=== PATIENT | female | born 1975 | race African-American/Black ===

== ENCOUNTER 2019-05-23 19:40 | Emergency (ER) | payer OTHER ==
[2019-05-23 19:58] VITALS: BMI 34.7
[2019-05-23] MEDS ORDERED: LORazepam 2 MG TABLET PO ONE (21:09)
[2019-05-23] MEDS ORDERED: LORazepam 0.5 MG TABLET ONE (21:11)
[2019-05-23 22:03] VITALS: BP 130/87; PULSE 70; TEMP 98.7
== END 2019-05-23 22:17 | disposition home or self-care (01) ==
LOC: JER 19:40
DX: R07.9 Chest pain, unspecified (principal); Z20.828 Contact with and (suspected) exposure to other viral communicable diseases
CPT/HCPCS: 36415; 71045-TC-FY; 82550; 84484; 93005; 93010; 99284-25

== ENCOUNTER 2019-11-25 01:20 | Observation (INO) | payer OTHER ==
[2019-11-25 01:29] VITALS: BMI 34.7
--- NOTE | 2019-11-25 01:43 | PDOC ---
History of Present Illness - General Chief Complaint: Shortness of Breath Stated Complaint: DIFFICULTY BREATHING - History of Present Illness Initial Comments: 11/25/19 01:43 HPI: 44 y/o F with no pmh presenting with "panic attack" and chest pain. She woke up at midnight gasping for air and felt subsequent chest pressure that was genrealized and non radiating. She also felt SOB. Since arrival her symptoms have improved with no intervention. She reports it is similar to her previous panic attacks. Symptoms are not exertional. She also has 2-3pillow orthopnea but denies PND. She denies fever, chills, abd pain, n/v, dysuria PMHx: as noted above ROS: as noted SHx: 1/2 ppd tobacco use; no alcohol use; no rec drugs Allergies: NKDA ROS: GENERAL/CONSTITUTIONAL: No fever or chills. No weakness. HEAD, EYES, EARS, NOSE AND THROAT: No change in vision. No ear pain or discharge. No sore throat. CARDIOVASCULAR: +chest pain and shortness of breath RESPIRATORY: No cough, wheezing, or hemoptysis. GASTROINTESTINAL: No nausea, vomiting, diarrhea or constipation. GENITOURINARY: No dysuria, frequency, or change in urination. MUSCULOSKELETAL: No joint or muscle swelling or pain. No neck or back pain. SKIN: No rash NEUROLOGIC: No headache, vertigo, loss of consciousness, or change in strength/sensation. ENDOCRINE: No increased thirst. No abnormal weight change HEMATOLOGIC/LYMPHATIC: No anemia, easy bleeding, or history of blood clots. ALLERGIC/IMMUNOLOGIC: No hives or skin allergy. PE: GENERAL: Awake, alert, and fully oriented, no acute distress HEAD: No signs of trauma, normocephalic, atraumatic EYES: EOMI, sclera anicteric, conjunctiva clear ENT: Auricles normal inspection, hearing grossly normal, nares patent, oropharynx clear without exudates. Moist mucosa NECK: Normal ROM, no lymphadenopathy LUNGS: No increased work of breathing, symmetrical chest rise, clear to auscultation bilaterally, no wheezes, crackles or rhonchi HEART: Regular rate, regular rhythm, normal S1 and S2, no murmur, peripheral pulses 2+ and equal bilaterally. ABDOMEN: Soft, nondistended, nontender. No guarding, no rebound. No masses. No CVAT MUSCULOSKELETAL: FROM NEUROLOGICAL: Cranial nerves II through XII grossly intact. Normal speech, stable gait, no focal sensorimotor deficits SKIN: Warm, Dry, normal turgor, no rashes or lesions noted Past History - Medical History Allergies/Adverse Reactions: Allergies Allergy/AdvReac Type Severity Reaction Status Date / Time No Known Allergies Allergy Verified 11/25/19 01:29 - Reproductive History Is Patient Now?: No - Psycho-Social/Smoking History Smoking History: Current every day smoker Number of Cigarettes Smoked Daily: 12 Information on smoking cessation initiated: No - Substance Abuse Hx (Audit-C & DAST Scrn) How often the patient has a drink containing alcohol: Monthly or less Number of drinks the patient has on a typical day: 1 or 2 Score: In Men: 4 or > Positive; In Women: 3 or > Positive: 1 Screen Result (Pos requires Nsg. Audit-10AR): Negative In the last yr the pt used illegal drug/Rx for NonMed reason: No Score: Yes response is considered Positive: 0 Screen Result (Positive result requires Nsg. DAST-10): Negative *Physical Exam - Vital Signs Last Vital Signs Temp Pulse Resp BP Pulse Ox 98.6 F 90 20 132/91 100 11/25/19 01:27 11/25/19 01:27 11/25/19 01:27 11/25/19 01:27 11/25/19 01:27 Heart Score/ECG Review - History History: Slightly suspicious - Electrocardiogram EKG: Normal - Age Age: 45-65 - Risk Factors Risk Factors Heart Score: Yes Positive family hx of cardiac disease Based on the list above the patient has:: 1-2 risk factors - Troponin Troponin: </= normal limit - Score Heart Score - Total: 2 ED Treatment Course - LABORATORY CBC & Chemistry Diagram: 11/25/19 02:08 11/25/19 02:08 Medical Decision Making - Medical Decision Making 11/25/19 03:05 44 y/o F with no pmh presenting with "panic attack" and chest pain with SOB. VSS, AF. PE nonfocal. DDX includes panic attack, acs, gastritis, msk pain. PE less likely due to PERC negative -cbc, cmp, card prof, mg, ekg, cxr -reassess 11/25/19 03:10 ekg with no kayla/d, nsr, nl intervals, however inverted p waves in avl labs wnl HEART score 2 cxr pending will rpt trop and likely DC 11/25/19 06:19 rpt trop negative however, rpt ekg with new inverted t waves in v3,v4,v5 no current chest pain, however, given dynamic ekg changes will admit for further workup Discharge - Discharge Information Problems reviewed: Yes Clinical Impression/Diagnosis: Acute dyspnea, Anxiety attack, Chest pain, Abnormal finding on EKG Condition: Stable - Admission Yes - Follow up/Referral - Patient Discharge Instructions - Post Discharge Activity
--- NOTE | 2019-11-25 01:44 | PDOC ---
Attending Attestation - Resident Resident Name: Ofelia Cullen - ED Attending Attestation I have performed the following: I have examined & evaluated the patient, The case was reviewed & discussed with the resident, I agree w/resident's findings & plan - HPI HPI: 11/25/19 05:43 see resident hpi - Physicial Exam PE: 11/25/19 05:43 see resident exam - Medical Decision Making 11/25/19 05:44 44-year-old female with complaints of anxiety attack and chest tightness now feeling better EKG shows a sinus rhythm 72 bpm with no acute ST elevations Chest x-ray shows no acute infiltrate Patient is feeling much better, plan for troponin x2 DC home with outpatient primary care follow-up Discharge - Discharge Information Problems reviewed: Yes Clinical Impression/Diagnosis: Acute dyspnea, Anxiety attack Condition: Stable Disposition: HOME - Follow up/Referral - Patient Discharge Instructions Patient Printed Discharge Instructions: DI for Atypical Chest Pain Additional Instructions: Additional Instructions: Please return to the emergency department with any new or worsening symptoms or concerns including worsening pain, persistent shortness of breath, fainting. Please follow up with your primary care physician within 72 hours for further evaluation of chest pain and possible panic attacks - Post Discharge Activity
[2019-11-25 02:28] LABS: BASO % 1.3 % (0-2.0); EOS % 0.4 % (0-4.5); HEMATOCRIT 42.7 % (32.4-45.2); HEMOGLOBIN 14.4 GM/dL (10.7-15.3); LYMPH % 26.8 % (8-40); MCH 34.3 pg (25.7-33.7); MCHC 33.7 g/dl (32.0-36.0); MEAN CELL VOLUME 101.6 fl (80-96); MEAN PLT VOLUME 7.8 fl (7.5-11.1); MONO % 4.2 % (3.8-10.2); NEUT % 67.3 % (42.8-82.8); PLATELET COUNT 251 K/MM3 (134-434); RBC 4.21 M/mm3 (3.60-5.2); RDW 13.4 % (11.6-15.6); WHITE BLOOD COUNT 9.8 K/mm3 (4.0-10.0)
[2019-11-25 02:55] LABS: ALBUMIN 3.9 g/dl (3.4-5.0); ALK PHOS 75 U/L (45-117); ANION GAP 8 MMOL/L (8-16); BILIRUBIN,TOTAL 0.2 mg/dL (0.2-1); BLOOD UREA NITROGEN 8.8 mg/dL (7-18); CALCIUM 9.6 mg/dL (8.5-10.1); CHLORIDE 108 mmol/L (98-107); CO2 26 mmol/L (21-32); CREATININE 0.7 mg/dL (0.55-1.3); GLUCOSE,RANDOM 99 mg/dL (74-106); MAGNESIUM 2.1 mg/dL (1.8-2.4); POTASSIUM 3.9 mmol/L (3.5-5.1); SGOT/AST 15 U/L (15-37); SGPT/ALT 22 U/L (13-61); SODIUM 141 mmol/L (136-145); TOT PROT 7.7 g/dl (6.4-8.2)
[2019-11-25] MEDS ORDERED: ASPIRIN 81 MG CHEWABLE TABLETS PO SCH (10:00)
--- NOTE | 2019-11-25 10:14 | CON.CARD ---
Consult Consult Specialty:: Cardiology Referred by:: Fariha Everett MD Reason for Consultation:: Chest pain and dyspnea - History of Present Illness Chief Complaint: Chest pain and dyspnea History of Present Illness: 44 y/o F with h/o panic disorder woke up at midnight gasping for air, felt subsequent non-exertional, non-radiating chest pressure associated with SOB and palpitations. Since arrival her symptoms have improved with no intervention and have since resolved. She reports it is similar to her previous panic attacks. She denies increased orthopnea, PND, LE edema or change in exxercise capacity. She is jourdan-menopausal. - History Source History Provided By: Patient Limitations to Obtaining History: No Limitations - Past Medical History ...LMP: 11/25/19 ...: No - Alcohol/Substance Use Hx Alcohol Use: No - Smoking History Smoking history: Current every day smoker Aproximately how many cigarettes per day: 12 Home Medications - Allergies Allergies/Adverse Reactions: Allergies Allergy/AdvReac Type Severity Reaction Status Date / Time No Known Allergies Allergy Verified 11/25/19 01:29 - Home Medications Home Medications: Ambulatory Orders NK [No Known Home Medication] 11/25/19 Review of Systems - Review of Systems Cardiovascular: reports: Chest Pain, Palpitations, Shortness of Breath Vital Signs: Vital Signs Temperature 98.6 F 11/25/19 06:45 Pulse Rate 86 11/25/19 06:45 Respiratory Rate 19 11/25/19 06:45 Blood Pressure 138/82 11/25/19 06:45 O2 Sat by Pulse Oximetry (%) 99 11/25/19 06:45 Constitutional: Yes: No Distress, Calm Neck: Yes: Supple Respiratory: Yes: Regular, CTA Bilaterally Gastrointestinal: Yes: Normal Bowel Sounds, Soft Cardiovascular: Yes: Regular Rate and Rhythm JVD: No Carotid Bruit: No Heart Sounds: Yes: S1, S2 Edema: No - Other Data Labs, Other Data: CBC, BMP 11/25/19 02:08 11/25/19 02:08 Troponin, BNP 11/25/19 11/25/19 11/25/19 02:08 04:45 08:00 Troponin I < 0.02 < 0.02 < 0.02 Troponin, BNP 11/25/19 11/25/19 11/25/19 02:08 04:45 08:00 Troponin I < 0.02 < 0.02 < 0.02 NSR @ 71 with nonspec anterolateral TW changes Echo: Pending Stress Echo: Pending Ejection Fraction %: LVEF > or = 40 % Imaging - Results Chest X-ray: Report Reviewed (NAD) Problem List - Problems (1) Abnormal finding on EKG Code(s): R94.31 - ABNORMAL ELECTROCARDIOGRAM [ECG] [EKG] (2) Acute dyspnea Code(s): R06.00 - DYSPNEA, UNSPECIFIED (3) Anxiety attack Code(s): F41.0 - PANIC DISORDER [EPISODIC PAROXYSMAL ANXIETY] (4) Chest pain Code(s): R07.9 - CHEST PAIN, UNSPECIFIED Qualifiers: Chest pain type: other chest pain Qualified Code(s): R07.89 - Other chest pain; R07.8 - Other chest pain Assessment/Plan 1. Atypical chest pain, dyspnea and palpitations c/w panic disorder 2. Abnormal ECG with decreased specificity in perimenopausal women P:1. Ruled out for MO and remains asymptomatic 2. June d/c home with f/u in office for stress echo to r/o structural heart disease 3. Thank you for consultative opportunity
[2019-11-25] MEDS ORDERED: ASPIRIN COATED 81 MG TABLET.EC ONE (10:53)
[2019-11-25] MEDS ORDERED: ACETAMINOPHEN 325 MG TABLET (FP) PO PRN (12:37)
--- NOTE | 2019-11-25 12:37 | DS ---
Physical Examination Vital Signs: Vital Signs Temperature 98.6 F 11/25/19 06:45 Pulse Rate 86 11/25/19 06:45 Respiratory Rate 19 11/25/19 06:45 Blood Pressure 138/82 11/25/19 06:45 O2 Sat by Pulse Oximetry (%) 99 11/25/19 06:45 Labs: CBC, BMP 11/25/19 02:08 11/25/19 02:08 Discharge Summary Problems reviewed: Yes Reason For Visit: ACUTE DYSPNEA,ABNORMAL ELECTROCARDIOGRAPHY Current Active Problems Abnormal finding on EKG (Acute) Acute dyspnea (Acute) Anxiety attack (Acute) Chest pain (Acute) Condition: Stable - Instructions Referrals: Chinmay Cavazos MD [Primary Care Provider] - - Home Medications Comprehensive Discharge Medication List: Ambulatory Orders NK [No Known Home Medication] 11/25/19
--- NOTE | 2019-11-25 12:37 | HP ---
Admitting History and Physical - Past Medical History ...LMP: 11/25/19 ...: No - Smoking History Smoking history: Current every day smoker Aproximately how many cigarettes per day: 12 - Alcohol/Substance Use Hx Alcohol Use: No Home Medications - Allergies Allergies/Adverse Reactions: Allergies Allergy/AdvReac Type Severity Reaction Status Date / Time No Known Allergies Allergy Verified 11/25/19 01:29 - Home Medications Home Medications: Ambulatory Orders NK [No Known Home Medication] 11/25/19 Physical Examination Vital Signs: Vital Signs Temperature 98.6 F 11/25/19 06:45 Pulse Rate 86 11/25/19 06:45 Respiratory Rate 19 11/25/19 06:45 Blood Pressure 138/82 11/25/19 06:45 O2 Sat by Pulse Oximetry (%) 99 11/25/19 06:45 Labs: CBC, BMP 11/25/19 02:08 11/25/19 02:08
--- NOTE | 2019-11-25 13:34 | EKG ---
Test Reason : Blood Pressure : / mmHG Vent. Rate : 066 BPM Atrial Rate : 066 BPM P-R Int : 180 ms QRS Dur : 074 ms QT Int : 404 ms P-R-T Axes : 064 -14 013 degrees QTc Int : 423 ms POOR DATA QUALITY, INTERPRETATION MAY BE ADVERSELY AFFECTED NORMAL SINUS RHYTHM NONSPECIFIC T WAVE ABNORMALITY ABNORMAL ECG WHEN COMPARED WITH ECG OF 23-MAY-2019 20:28, T WAVE INVERSION NOW EVIDENT IN ANTERIOR LEADS Confirmed by VAISHALI ELLIS MD ([id number]) on 11/25/2019 1:34:23 PM Referred By: Confirmed By:VAISHALI ELLIS MD
--- NOTE | 2019-11-25 13:34 | EKG ---
Test Reason : Blood Pressure : / mmHG Vent. Rate : 074 BPM Atrial Rate : 074 BPM P-R Int : 180 ms QRS Dur : 082 ms QT Int : 396 ms P-R-T Axes : 061 -30 009 degrees QTc Int : 439 ms SINUS RHYTHM WITH PREMATURE SUPRAVENTRICULAR COMPLEXES LEFT AXIS DEVIATION POSSIBLE ANTERIOR INFARCT , AGE UNDETERMINED ABNORMAL ECG WHEN COMPARED WITH ECG OF 25-NOV-2019 02:01, SINUS RHYTHM HAS REPLACED ECTOPIC ATRIAL RHYTHM NONSPECIFIC T WAVE ABNORMALITY NOW EVIDENT IN ANTEROLATERAL LEADS Confirmed by VAISHALI ELLIS MD ([id number]) on 11/25/2019 1:34:40 PM Referred By: Confirmed By:VAISHALI ELLIS MD
--- NOTE | 2019-11-25 13:35 | EKG ---
Test Reason : Blood Pressure : / mmHG Vent. Rate : 072 BPM Atrial Rate : 072 BPM P-R Int : 180 ms QRS Dur : 080 ms QT Int : 390 ms P-R-T Axes : 149 021 034 degrees QTc Int : 427 ms UNUSUAL P AXIS, POSSIBLE ECTOPIC ATRIAL RHYTHM ABNORMAL ECG WHEN COMPARED WITH ECG OF 23-MAY-2019 20:28, ECTOPIC ATRIAL RHYTHM HAS REPLACED SINUS RHYTHM Confirmed by VAISHALI ELLIS MD ([id number]) on 11/25/2019 1:34:59 PM Referred By: Confirmed By:VAISHALI ELLIS MD
--- NOTE | 2019-11-25 15:10 | ECHO ---
Name: DANIEL, RUBEN Exam:Adult Echocardiogram Study Date: 11/25/2019 01:31 PM Age: 44 yrs MMode/2D Measurements & Calculations IVSd: 0.88 cm Ao root diam: 2.7 cm LVIDd: 4.1 cm LA dimension: 2.8 cm LVIDs: 2.8 cm ACS: 2.0 cm LVPWd: 1.2 cm LVPWs: 1.4 cm EDV(Teich): 76.2 ml ESV(Teich): 30.4 ml LVOT diam: 2.0 cm LAV (MOD-bp): 27.0 ml RV S Emile: 12.4 cm/sec Doppler Measurements & Calculations MV E max emile: 84.4 cm/sec Ao V2 max: 124.6 cm/sec MV A max emile: 63.2 cm/sec Ao max P.2 mmHg MV E/A: 1.3 ZEHRA(V,D): 2.7 cm2 MV dec time: 0.19 sec LV V1 max P.4 mmHg PA V2 max: 80.8 cm/sec LV V1 max: 104.6 cm/sec PA max P.6 mmHg Med Peak E' Emile: 8.8 cm/sec Med E/e': 9.6 Lat Peak E' Emile: 10.1 cm/sec Lat E/e': 8.3 Procedure A complete two-dimensional transthoracic echocardiogram was performed (2D, M-mode, Doppler and color flow Doppler). Left Ventricle The left ventricular size, thickness and function are normal. Ejection Fraction = 60-65%. The left ve ntricular wall motion is normal. Right Ventricle The right ventricle is normal in size and function. Atria Normal left and right atrial size and function. Mitral Valve There is no mitral regurgitation noted. Tricuspid Valve There is trace tricuspid regurgitation. There was insufficient TR detected to calculate RV systolic p ressure. Aortic Valve No hemodynamically significant valvular aortic stenosis. No aortic regurgitation is present. Pulmonic Valve There is no pulmonic valvular regurgitation. Great Vessels The aortic root is normal size. Pericardium/Pleura There is no pericardial effusion. Interpretation Summary The left ventricular size, thickness and function are normal The right ventricle is normal in size and function. There is trace tricuspid regurgitation. MD Terence Horn 11/25/2019 03:09 PM
[2019-11-25 15:15] VITALS: BP 119/83; PULSE 76; TEMP 98.3
--- NOTE | 2019-11-29 16:13 | EKG ---
Test Reason : Blood Pressure : / mmHG Vent. Rate : 070 BPM Atrial Rate : 070 BPM P-R Int : 174 ms QRS Dur : 074 ms QT Int : 382 ms P-R-T Axes : 061 -31 010 degrees QTc Int : 412 ms SINUS RHYTHM WITH PREMATURE SUPRAVENTRICULAR COMPLEXES LEFT AXIS DEVIATION CANNOT RULE OUT ANTERIOR INFARCT , AGE UNDETERMINED ABNORMAL ECG WHEN COMPARED WITH ECG OF 25-NOV-2019 06:21, PREMATURE SUPRAVENTRICULAR COMPLEXES ARE NOW PRESENT Confirmed by AZ ZAVALA MD ([id number]) on 11/29/2019 4:13:13 PM Referred By: Confirmed By:AZ ZAVALA MD
== END 2019-11-25 15:58 | disposition home or self-care (01) ==
LOC: JER 01:20 → INTOOBSV 06:24 → UNDOADMOB 06:24 → JERBED 06:24
PROVIDERS: ADMIT Internal Medicine; ATTEND Internal Medicine
DX: R07.9 Chest pain, unspecified (principal); R06.00 Dyspnea, unspecified; F17.210 Nicotine dependence, cigarettes, uncomplicated; R94.31 Abnormal electrocardiogram [ECG] [EKG]; R07.89 Other chest pain; E66.8 Other obesity; Z68.34 Body mass index [BMI] 34.0-34.9, adult; F41.0 Panic disorder [episodic paroxysmal anxiety]
CPT/HCPCS: 36415; 71046-TC-FY; 80053; 82550; 82553; 83735; 84484; 85025; 93005; 93010; 93306-TC; 99285-25; C9803; G0378; U0003

== ENCOUNTER 2023-05-11 00:16 | Emergency (ER) | payer OTHER ==
[2023-05-11 00:48] VITALS: BP 131/85; PULSE 87; RESP 17; TEMP 99.1; BMI 33.5
[2023-05-11] MEDS ORDERED: ACETAMINOPHEN INJECTION 100 ML IVPB ONE (01:16)
[2023-05-11] MEDS: ACETAMINOPHEN 1000 MG/100 ML BAG IVPB ONE (01:22)
[2023-05-11] MEDS: SODIUM CHLORIDE 0.9% 500 ML INFUS.BAG IV ONE (01:22)
[2023-05-11 02:12] LABS: BASO % 0.5 % (0-2.0); EOS % 1.1 % (0-4.5); HEMATOCRIT 42.2 % (32.4-45.2); HEMOGLOBIN 14.5 GM/dL (10.7-15.3); LYMPH % 40.1 % (8-40); MCH 34.1 pg (25.7-33.7); MCHC 34.5 g/dl (32.0-36.0); MEAN CELL VOLUME 98.7 fl (80-96); MEAN PLT VOLUME 7.4 fl (7.5-11.1); MONO % 7.9 % (3.8-10.2); NEUT % 50.4 % (42.8-82.8); PLATELET COUNT 316 10^3/uL (134-434); RBC 4.27 M/mm3 (3.60-5.2); WHITE BLOOD COUNT 10.2 K/mm3 (4.0-10.0)
[2023-05-11 02:45] LABS: CHLORIDE 97 mmol/L (98-107); SODIUM 138 mmol/L (136-145)
[2023-05-11 02:47] LABS: CALCIUM 9.8 mg/dL (8.5-10.1)
[2023-05-11 02:48] LABS: ALBUMIN 3.8 g/dl (3.4-5.0); BLOOD UREA NITROGEN 15.9 mg/dL (7-18); CO2 30 mmol/L (21-32); GLUCOSE,RANDOM 107 mg/dL (74-106)
[2023-05-11 02:51] LABS: CREATININE 0.9 mg/dL (0.55-1.3); SGOT/AST 15 U/L (15-37); SGPT/ALT 25 U/L (13-61)
[2023-05-11 02:52] LABS: BILIRUBIN,TOTAL 0.4 mg/dL (0.2-1); TOT PROT 7.3 g/dl (6.4-8.2)
[2023-05-11 02:54] LABS: ALK PHOS 67 U/L (45-117)
[2023-05-11 02:58] LABS: ANION GAP 11 mmol/L (4-13); POTASSIUM 2.4 mmol/L (3.5-5.1)
[2023-05-11] MEDS ORDERED: POTASSIUM CHLORIDE TABS 20 MEQ TABLET.ER (FP) PO ONE (04:15)
[2023-05-11] MEDS: POTASSIUM CHLORIDE TABS 20 MEQ TABLET.ER (FP) PO ONE ×2 (04:19)
== END 2023-05-11 03:07 | disposition home or self-care (01) ==
LOC: FER 00:16
PROC: 3E030NZ Introduction of Analgesics, Hypnotics, Sedatives into Peripheral Vein, Open Approach (ICD-10-PCS; principal; 2023-05-11)
DX: R05.9 Cough, unspecified (principal); R53.81 Other malaise; A08.4 Viral intestinal infection, unspecified; J00 Acute nasopharyngitis [common cold]; B97.89 Other viral agents as the cause of diseases classified elsewhere; Z20.822 Contact with and (suspected) exposure to COVID-19
CPT/HCPCS: 0241U-QW; 36415; 71046-TC-FY; 80053; 85025; 93005; 99285-25; J0131

== ENCOUNTER 2023-11-01 23:42 | Emergency (ER) | payer OTHER ==
[2023-11-01 23:46] VITALS: BMI 31.8
[2023-11-02] MEDS ORDERED: FAMOTIDINE 20 MG/50 ML IVPB 20 MG/50 ML MG IVPB ONE (00:44)
[2023-11-02] MEDS ORDERED: ACETAMINOPHEN INJECTION 100 ML ONE (00:44)
[2023-11-02] MEDS: SODIUM CHLORIDE 1,000 ML IV STA (01:10)
[2023-11-02] MEDS: FAMOTIDINE 20 MG/50 ML IVPB 20 MG/50 ML MG IVPB ONE (01:10)
[2023-11-02] MEDS: ACETAMINOPHEN 1000 MG/100 ML BAG IVPB ONE (01:10)
[2023-11-02 01:16] LABS: BASO % 0.6 % (0-2.0); EOS % 0.5 % (0-4.5); HEMATOCRIT 41.5 % (32.4-45.2); HEMOGLOBIN 13.6 GM/dL (10.7-15.3); LYMPH % 18.2 % (8-40); MCH 33.2 pg (25.7-33.7); MCHC 32.9 g/dl (32.0-36.0); MEAN PLT VOLUME 8.1 fl (7.5-11.1); NEUT % 75.7 % (42.8-82.8); PLATELET COUNT 283 10^3/uL (134-434); RBC 4.11 M/mm3 (3.60-5.2); RDW 13.9 % (11.6-15.6); WHITE BLOOD COUNT 16.2 K/mm3 (4.0-10.0)
[2023-11-02 01:56] LABS: LACTIC ACID 2.1 mmol/L (0.4-2.0)
[2023-11-02 02:01] LABS: POTASSIUM 3.8 mmol/L (3.5-5.1)
[2023-11-02 02:02] LABS: ALBUMIN 3.6 g/dl (3.4-5.0); CALCIUM 9.4 mg/dL (8.5-10.1)
[2023-11-02 02:04] LABS: BLOOD UREA NITROGEN 15.5 mg/dL (7-18)
[2023-11-02 02:07] LABS: CREATININE 0.8 mg/dL (0.55-1.3)
[2023-11-02 02:08] LABS: BILIRUBIN,TOTAL 0.3 mg/dL (0.2-1); TOT PROT 6.8 g/dl (6.4-8.2)
[2023-11-02 02:33] LABS: HIV INTERPRETATION NEGATIVE (NEGATIVE)
[2023-11-02] MEDS ORDERED: PIPERACILLIN/TAZOB 3.375 GM 3.375 GM/50 ML BAG IVPB ONE (02:47)
[2023-11-02 03:07] LABS: EPI CELLS 21 /uL (0-25.1); HYALINE CASTS 1 /uL (0-3.1); URINE APPEARANCE CLEAR; URINE BACTERIA 530 /uL (0-1359); URINE BILIRUBIN NEGATIVE (NEGATIVE); URINE COLOR YELLOW; URINE GLUCOSE (UA) NEGATIVE (NEGATIVE); URINE KETONE NEGATIVE (NEGATIVE); URINE LEUK ESTERASE TRACE (NEGATIVE); URINE NITRITE NEGATIVE (NEGATIVE); URINE PROTEIN NEGATIVE (NEGATIVE); URINE RBC 8 /uL (0-23.9); URINE UROBILINOGEN 0.2 mg/dL (0.2-1.0); URINE WBC 19 /uL (0-25.8)
[2023-11-02] MEDS: PIPERACILLIN/TAZOB 3.375 GM 3.375 GM in DEXTROSE 5%-WATER - 50 ML IVPB ONE (03:26)
[2023-11-02 06:43] LABS: INR 0.96 (0.83-1.09); PROTHROMBIN TIME (PATIENT) 10.9 SEC (9.7-13.0)
[2023-11-02 06:57] VITALS: BP 112/79; PULSE 72; RESP 16
[2023-11-02 06:59] VITALS: TEMP 98.1
[2023-11-02] MEDS: CEPHALEXIN MONOHYDRATE 500 MG CAPSULE (UD) PO ONE (06:59)
== END 2023-11-02 07:12 | disposition home or self-care (01) ==
LOC: JER 23:42
PROC: 3E033GC Introduction of Other Therapeutic Substance into Peripheral Vein, Percutaneous Approach (ICD-10-PCS; principal; 2023-11-02)
PROC: 3E03329 Introduction of Other Anti-infective into Peripheral Vein, Percutaneous Approach (ICD-10-PCS; 2023-11-02)
PROC: 3E033NZ Introduction of Analgesics, Hypnotics, Sedatives into Peripheral Vein, Percutaneous Approach (ICD-10-PCS; 2023-11-02)
DX: R10.11 Right upper quadrant pain (principal); Z20.822 Contact with and (suspected) exposure to COVID-19
CPT/HCPCS: 0241U-QW; 36415; 74177-TC; 76705-TC; 80053; 81003; 83605; 83690; 84484; 85025; 85610; 85730; 86803; 86850; 86900; 86901; 87086; 87389; 93005; 93010; 99285-25; J0131; Q9967